=== PATIENT | female | born 1930 | race Caucasian/White ===

== ENCOUNTER 2018-11-13 20:16 | Observation (INO) ==
[2018-11-13 21:23] LABS: Alanine Aminotransferase 34 U/L (12-78); Albumin Level 3.4 gm/dl (3.4-5.0); Aspartate Aminotransferase 32 U/L (15-37); BUN Creatinine Ratio 19.1 (10-20); Blood Urea Nitrogen 17 mg/dl (7-18); Calcium 9.1 mg/dl (8.5-10.1); Carbon Dioxide 27 mmol/L (21-32); Chloride 107 mmol/L (98-107); Est GFR (African American) 67.1; Est GFR (Non-African American) 57.9; Glucose 120 mg/dl (70-99); Potassium 3.6 mmol/L (3.5-5.1); Sodium 139 mmol/L (136-145)
[2018-11-13 21:26] LABS: Albumin Globulin Ratio 0.9 (0.9-2); Alkaline Phosphatase 77 U/L (45-117); Bilirubin,Total 0.9 mg/dl (0.2-1); Globulin 3.8 gm/dl (2.5-4.0); Total Protein 7.2 gm/dl (6.4-8.2)
[2018-11-13 21:33] LABS: Hematocrit (blood only) 44.4 % (37-47); Mean Corpuscular Hgb Conc 33.8 g/dL (32-36); Mean Corpuscular Volume 89.9 fL (80-100); RDW Coefficient of Variation 13.3 % (11.5-14.5); Red Blood Count 4.94 M/uL (4.2-5.4); White Blood Count 9.67 K/uL (4.8-10.8)
[2018-11-13 21:36] LABS: Basophils # (auto) 0.01 K/uL (0-0.2); Basophils % (auto) 0.1 %; Eosinophils # (auto) 0.04 K/uL (0-0.5); Eosinophils % (auto) 0.4 %; Immature Granulocytes # (auto) 0.03 K/uL (0.00-0.02); Immature Granulocytes % (auto) 0.3 %; Lymphocytes # (auto) 0.54 K/uL (1.2-3.4); Lymphocytes % (auto) 5.6 %; Monocytes # (auto) 0.39 K/uL (0.11-0.59); Neutrophils # (auto) 8.66 K/uL (1.4-6.5); Neutrophils % (auto) 89.6 %; Platelet Count 28 K/uL (130-400); Platelet Estimate SIGNIFIC DECREASED (Normal)
[2018-11-13] MEDS ORDERED: ALBUT/IPRATROP 3MG/0.5MG NEB 3 ML VIAL NEB STA ×2 (22:41→23:44)
[2018-11-13] MEDS ORDERED: OSELTAMIVIR PHOSPHATE 75 MG CAP PO STA (22:41)
[2018-11-13] MEDS ORDERED: SODIUM CHLORIDE 0.9% 1000ML 1,000 ML IV SCH (22:45)
[2018-11-13 23:48] LABS: Appearance Urine Clear (Clear); Bacteria Urine Automated Negative (Negative); Bilirubin Urine Negative (Negative); Blood Urine 1+ (Negative); Cast Urine Automated 0 /lpf (0-5); Color Urine Yellow; Glucose Urine UA Negative (Negative); Ketones Urine Negative (Negative); Leukocyte Esterase Urine Negative (Negative); Nitrite Urine Negative (Negative); Protein Urine 1+ (Negative); RBC Urine Automated 0-4 /hpf (0-4); Specific Gravity Urine 1.015 (1.000-1.030); Urobilinogen Urine Negative (Negative)
--- NOTE | 2018-11-14 00:14 | History & Physical Report ---
Date of Service November 14, 2018 Assessment & Plan (1) Influenza A: (2) HTN (hypertension): (3) Thrombocytopenia: (4) History of ITP: History of Present Illness Chief Complaint: Fever and weakness Primary Care Provider: Jennifer Linton 88-year-old female with a past medical history of hypertension, osteoporosis, thrombocytopenia, hypothyroidism, presents to the emergency room tonight complaining of fever, and weakness. In the emergency room she was hypoxic and tested positive for influenza A. She felt too tired and weak to go home so we will place her under observation tonight Assessment and Plan Influenza A Thrombocytopenia Hypertension History of ITP Hypothyroidism Continue Tamiflu, gentle IV fluids, IV steroids, nebulizers, observation status likely to be her less than 2 midnights ROS-No Headache, No Visual Changes, positive fever, positive chills, No Neck Pain or Stiffness, No Chest Pain, No Palpitations, positive SOB, positive DONOHUE, positive cough, No Sputum, No Wheezing, No Abdominal Pain, No Diarrhea, No Hematemesis, No Hemoptysis, No Unexpected Weight Loss, No Flank pain, No Melena, No Hematochezia, No Frequency, No Urgency, No Burning, No Hematuria, No Rashes, No Diaphoresis. Appetite is decreased Physical Exam Gen-AAO x 3, NAD, Afebrile, weak Head-NCAT, EOMI, PERRLA, Anicteric Sclera, No Posterior Pharyngeal Erythema Neck-Supple, No JVD, No Thyromegaly, No Masses, No LAD, No Bruits Lungs-No Rales, No Rhonchi, positive wheezing, No Crepitus Chest-No S4, +S1, +S2, No S3, No Murmurs, No Rubs, No Gallops, No Ectopy Abdomen-Soft, Bowel Sounds Present, Non Tender, Non Distended, No Hepatomegaly, No Splenomegaly, No Palpable Masses, No Rebound, No Rigidity, No Guarding Musculoskeletal-Full Range of Motion Bilaterally, No CVAT Extremities-No Cyanosis, No Clubbing, No Edema Nuero-Cranial Nerves II-XII grossly intact, Motor WNL, DTRs WNL, Strength WNL, No Focal Psych-Normal Mood PMH hypertension, osteoporosis, thrombocytopenia, hypothyroidism, ITP [facility] Meds reviewed and Reconciled Labs Reviewed Allergies Allergy/AdvReac Type Severity Reaction Status Date / Time Penicillins Allergy Severe HIVES Verified 11/13/18 22:36 Sulfa (Sulfonamide Allergy Severe HIVES Verified 11/13/18 22:36 Antibiotics) lisinopril Allergy Mild COUGH Verified 11/13/18 22:36 amlodipine Allergy Unknown Verified 11/14/18 01:47 carvedilol Allergy Unknown Verified 11/14/18 01:47 labetalol Allergy Unknown Verified 11/14/18 01:47 KRILL OIL AdvReac Intermediate GI SYMPTOMS Uncoded 11/13/18 22:36 Home Medications Home Medications Medication Instructions Recorded Confirmed Type acetaminophen [Tylenol Extra 1,000 mg PO DIRECTED PRN 11/13/18 11/13/18 History Strength] alpha lipoic acid 200 mg PO DAILY 11/13/18 11/13/18 History bisoprolol fumarate 10 mg PO QPM 11/13/18 11/13/18 History calcium carbonate-vitamin D3 1 tab PO 3XWK 11/13/18 11/13/18 History [Caltrate 600 + D] cholecalciferol (vitamin D3) 5,000 unit PO DAILY 11/13/18 11/13/18 History [Vitamin D3] clonidine HCl 0.1 mg PO QPM 11/13/18 11/13/18 History dexamethasone 40 mg PO DAILY 11/13/18 11/13/18 History dextromethorphan-guaifenesin 1 dose PO Q12H PRN 11/13/18 11/13/18 History [Mucinex DM] doxycycline hyclate 100 mg PO BID 11/13/18 11/13/18 History latanoprost 1 drp OPB HS 11/13/18 11/13/18 History levothyroxine 68.5 mcg PO WK 11/13/18 11/13/18 History levothyroxine 137 mcg PO 6XWK 11/13/18 11/13/18 History loratadine 10 mg PO DAILY PRN 11/13/18 11/13/18 History losartan 50 mg PO BID 11/13/18 11/13/18 History oseltamivir [Tamiflu] 30 mg PO BID 11/13/18 11/13/18 History spironolactone 25 mg PO DAILY 11/13/18 11/13/18 History vit C,G-Cm-jgnbj-lutein-zeaxan 2 tab PO DAILY 11/13/18 11/13/18 History [PreserVision AREDS-2] Past Med/Surg History Medical History History of ITP Thrombocytopenia HTN (hypertension) (Chronic) Surgical History Hx of cholecystectomy (Resolved) Social History Preferred Language: Sinhala Communication Ability: Effective Counsel[employer] Required: No Beliefs That Will Affect Care: None marital status: Current Living Situation: Alone current occupational status: retired Other Information That Helps Us Care for You: No Feels Safe at Home: Yes Safety Concerns: Feels Safe At This Time Smoking Status: Never smoker Hx Alcohol Use: No Hx Substance Use: No Physical Exam Vital Signs (Past 24 Hours): Last Vital Signs Temp 37.4 C 11/13/18 20:24 Pulse 89 11/13/18 20:24 Resp 18 11/13/18 20:24 BP 127/69 11/13/18 20:24 Pulse Ox 94 11/13/18 20:24
[2018-11-14] MEDS ORDERED: ONDANSETRON INJ 2 MG/ML 2 ML VIAL IV PRN (01:15)
[2018-11-14] MEDS ORDERED: ACETAMINOPHEN 325 MG TAB PO PRN (01:15)
[2018-11-14] MEDS ORDERED: LORATADINE 10 MG TAB PO PRN (01:15)
[2018-11-14] MEDS ORDERED: ACETAMINOPHEN 500 MG TAB PO PRN (01:15)
[2018-11-14] MEDS ORDERED: guaiFENesin 600 MG TABCR PO PRN (01:15)
--- NOTE | 2018-11-14 01:40 | Emergency Department Note ---
Entered by Manju Phan acting as a scribe for History of Present Illness General Chief complaint: Flu Like Symptoms Stated complaint: FLU LIKE SYMPTOMS,LOW PLATELET COUNT Time Seen by Provider: 11/13/18 22:31 Source: patient and family (daughter) Mode of arrival: ambulatory Limitations: no limitations History of Present Illness Provider complaint: Flu like symptoms Onset (ago): hour(s) (today) Location: head Pain Consistency: + other (worsening) Maximum Pain Intensity: 4 Quality: + other (flu like symptoms) Associated symptoms: + weakness and + other (Additional symptoms: low platelet count. Denies: hematuria, hematochezia, melena, vaginal bleeding); no nausea/vomiting Treatments prior to arrival: other (Tamiflu, steroids) The patient is an 88 year old female with a history of hypertension, cholecystec betina, and ITP who presents to the Emergency Room with complaints of worsening flu like symptoms starting today. The patient states that she went to her PCP today at [facility] in [place] and was prescribed Tamiflu and antibiotics. Her daughter notes that the patient subsequently took 1 dose of Tamiflu. The patient also reportedly had a chest x-ray and blood work performed but was not swabbed. Per daughter, the patient's PCP called the patient's jira administrator later this afternoon because the patient's platelets were down to 30. The patient notes that she has had low platelets in the past, which is why she has a jira administrator. The patient also complains of weakness but denies any hematuria, hematochezia, melena, vaginal bleeding, and vomiting. She reports that she is a former smoker and was never diagnosed with COPD and asthma. Home Medications Home Medications Medication Instructions Recorded Confirmed Type acetaminophen [Tylenol Extra 1,000 mg PO DIRECTED PRN 11/13/18 11/13/18 History Strength] alpha lipoic acid 200 mg PO DAILY 11/13/18 11/13/18 History bisoprolol fumarate 10 mg PO QPM 11/13/18 11/13/18 History calcium carbonate-vitamin D3 1 tab PO 3XWK 11/13/18 11/13/18 History [Caltrate 600 + D] cholecalciferol (vitamin D3) 5,000 unit PO DAILY 11/13/18 11/13/18 History [Vitamin D3] clonidine HCl 0.1 mg PO QPM 11/13/18 11/13/18 History dexamethasone 40 mg PO DAILY 11/13/18 11/13/18 History dextromethorphan-guaifenesin 1 dose PO Q12H PRN 11/13/18 11/13/18 History [Mucinex DM] doxycycline hyclate 100 mg PO BID 11/13/18 11/13/18 History latanoprost 1 drp OPB HS 11/13/18 11/13/18 History levothyroxine 68.5 mcg PO WK 11/13/18 11/13/18 History levothyroxine 137 mcg PO 6XWK 11/13/18 11/13/18 History loratadine 10 mg PO DAILY PRN 11/13/18 11/13/18 History losartan 50 mg PO BID 11/13/18 11/13/18 History oseltamivir [Tamiflu] 30 mg PO BID 11/13/18 11/13/18 History spironolactone 25 mg PO DAILY 11/13/18 11/13/18 History vit C,G-Gg-pkhcf-lutein-zeaxan 2 tab PO DAILY 11/13/18 11/13/18 History [PreserVision AREDS-2] Allergies Allergy/AdvReac Type Severity Reaction Status Date / Time Penicillins Allergy Severe HIVES Verified 11/13/18 22:36 Sulfa (Sulfonamide Allergy Severe HIVES Verified 11/13/18 22:36 Antibiotics) lisinopril Allergy Mild COUGH Verified 11/13/18 22:36 KRILL OIL AdvReac Intermediate GI SYMPTOMS Uncoded 11/13/18 22:36 Past Med/Surg History Medical History History of ITP Thrombocytopenia HTN (hypertension) (Chronic) Surgical History Hx of cholecystectomy (Resolved) Social History Preferred Language: Australian marital status: current occupational status: retired Feels Safe at Home: Yes Smoking Status: Former smoker Review of Systems See HPI for pertinent positives & negatives. and A total of 10 systems reviewed and were otherwise negative Physical Exam Vital Signs Vital Signs - 24 hr 11/13/18 20:24 11/13/18 23:52 11/14/18 00:00 Temperature 37.4 C Temperature Source Oral Sepsis Recent Fever Within 48 Hours Yes Sepsis Action Taken by Nursing No Action Required Pulse Rate 89 89 97 H Pulse Rate from SpO2 Sensor 87 96 H Respiratory Rate 18 12 13 Blood Pressure 127/69 119/82 116/70 Blood Pressure Mean 88 94 85 Pulse Oximetry 94 98 96 Oxygen Delivery Method Room Air 11/14/18 00:30 11/14/18 00:46 Temperature 36.6 C Temperature Source Sepsis Recent Fever Within 48 Hours Sepsis Action Taken by Nursing Pulse Rate 116 H Pulse Rate from SpO2 Sensor 116 H Respiratory Rate 28 H Blood Pressure 132/68 Blood Pressure Mean 89 Pulse Oximetry 91 Oxygen Delivery Method GENERAL: She is oriented to person, place, and time. She appears well-developed and well-nourished. She does not appear distressed. HENT: Exam performed. Head: Normocephalic and atraumatic. Right Ear: External ear normal. No mastoid tenderness. Left Ear: External ear normal. No mastoid tenderness. Mouth/Throat: The oropharynx is clear and moist. No trismus in the jaw. No dental abscesses or uvula swelling. No oropharyngeal exudate or tonsillar abscesses. No petechiae or oral lesions. EYES: Conjunctivae and EOM are normal. Pupils are equal, round, and reactive to light. Right eye exhibits no discharge. Left eye exhibits no discharge. No scleral icterus. NECK: Normal range of motion. Neck supple. No JVD present. No spinous process tenderness present. No carotid bruit present. No rigidity. No tracheal deviation and normal range of motion present. No Brudzinski's sign and no Kernig's sign noted. CV: Tachycardic rate, regular rhythm, normal heart sounds and intact distal pulses. There is no peripheral edema. Palpable radial pulses bue. PULM/CHEST: Effort normal. No respiratory distress. No stridor. She has expiratory wheezes bilaterally. She has no rales. Chest Wall: She exhibits no tenderness. ABD: The abdomen is soft. Bowel sounds are normal. She has no distension. No mass is present. There is no tenderness. There is no rebound, no guarding, no Adamson's sign and no tenderness at McBurney's point. Rovsig negative MUSC/SKEL: Normal range of motion. There is no peripheral edema, tenderness or deformity. LYMPH: No cervical adenopathy. NEURO: She is alert and oriented to person, place, and time. She has normal strength. No cranial nerve deficit or sensory deficit. Coordination and gait normal. GCS eye subscore is 4. GCS verbal subscore is 5. GCS motor subscore is 6. cerbellar tests wnl. SKIN: Skin is warm and dry. She is not diaphoretic. PSYCH: She has a normal mood and affect. Her behavior is normal. Judgment and thought content normal. Course 2234: Past medical records reviewed. The patient was evaluated in room D5, and a complete history and physical examination were performed. Records from obtained by the debug technician through the [employer] portal reveal that the patient has a history of thrombocytopenia. Her platelets usually run from 40,000-90,000 and the patient is through to have ITP. The patient was seen in the office today and had a platelet count of 30. 2337: Signs stable. Patient's lab platelet count is 20,000. Chest x-ray within normal limits. Influenza positive. It is thought that the patient's influenza virus is causing her thrombocytopenia anterior her have an acute flareup of ITP. I reviewed the patient's case with Dr. Centeno - Hematology/Oncology, [facility]. Dr. Wood stated that no steroids are indicated to treat the ITP at this point. 2344: Upon reevaluation, the patient is still wheezing. She will be given repeat DuoNeb. I had a long discussion with the patient daughter at bedside. They state that they do not feel comfortable taking the patient home as her platelet count is going lower and she is extremely fatigued and having difficulty breathing. I discussed the findings and the treatment plan with the patient. She expresses agreement and understanding. I spoke with Dr. Dykes of the [facility]. The patient will be evaluated for further management. Consultations Consultation #1: I reviewed the patient's case with Dr. Centeno - Hematology/Oncology, [facility]. Dr. Wood stated that no steroids are indicated. Time: 23:37 Consultation #2: I discussed the findings and the treatment plan with the patient. She expresses agreement and understanding. I spoke with Dr. Dykes of the [facility]. The patient will be evaluated for further management. Time: 23:44 Administered Medications Sodium Chloride (Nss 1000ml) 1,000 mls @ 125 mls/hr IV .Q8H DASHA Stop: 12/13/18 22:44 Last Admin: 11/13/18 23:50 Dose: 125 mls/hr Documented by: [id number] Discontinued Medications Albuterol (Duoneb) 3 ml NEB NOW STA Stop: 11/13/18 22:42 Last Admin: 11/13/18 23:43 Dose: 3 ml Documented by: [id number] Albuterol (Duoneb) 3 ml NEB NOW STA Stop: 11/13/18 23:45 Last Admin: 11/13/18 23:54 Dose: 3 ml Documented by: [id number] Oseltamivir Phosphate (Tamiflu) 75 mg PO NOW STA Stop: 11/13/18 22:42 Last Admin: 11/13/18 23:42 Dose: 75 mg Documented by: [id number] Medical Decision Making Medical Records Attestation: I reviewed the patient's medical records. Home Medications Current Medication List: was personally reviewed by me Laboratory Data Attestation: I reviewed the patient's lab results. Result diagrams: 11/13/18 20:36 11/13/18 20:36 Lab Results 11/13/18 11/13/18 11/13/18 Range/Units 20:29 20:36 20:36 WBC 9.67 (4.8-10.8) K/uL RBC 4.94 (4.2-5.4) M/uL Hgb 15.0 (12.0-16.0) g/dL Hct 44.4 (37-47) % MCV 89.9 (80-100) fL MCH 30.4 (25-34) pg MCHC 33.8 (32-36) g/dL RDW Std Deviation 44.0 (36.4-46.3) fL RDW Coeff of Kristopher 13.3 (11.5-14.5) % Plt Count 28 L* (130-400) K/uL Immature Gran % (Auto) 0.3 % Neut % (Auto) 89.6 % Lymph % (Auto) 5.6 % Clarke % (Auto) 4.0 % Eos % (Auto) 0.4 % Baso % (Auto) 0.1 % Immature Gran # (Auto) 0.03 H (0.00-0.02) K/uL Neut # (Auto) 8.66 H (1.4-6.5) K/uL Lymph # (Auto) 0.54 L (1.2-3.4) K/uL Clarke # (Auto) 0.39 (0.11-0.59) K/uL Eos # (Auto) 0.04 (0-0.5) K/uL Baso # (Auto) 0.01 (0-0.2) K/uL Platelet Estimate SIGNIFIC DECREASED (Normal) Sodium 139 (136-145) mmol/L Potassium 3.6 (3.5-5.1) mmol/L Chloride 107 (98-107) mmol/L Carbon Dioxide 27 (21-32) mmol/L Anion Gap 6.0 (3-11) BUN 17 (7-18) mg/dl Creatinine 0.89 (0.6-1.2) mg/dl Est Cr Clr Drug Dosing Not Reportable Est GFR ( Amer) 67.1 Est GFR (Non-Af Amer) 57.9 BUN/Creatinine Ratio 19.1 (10-20) Glucose 120 H (70-99) mg/dl Calcium 9.1 (8.5-10.1) mg/dl Total Bilirubin 0.9 (0.2-1) mg/dl AST 32 (15-37) U/L ALT 34 (12-78) U/L Alkaline Phosphatase 77 (45-117) U/L Total Protein 7.2 (6.4-8.2) gm/dl Albumin 3.4 (3.4-5.0) gm/dl Globulin 3.8 (2.5-4.0) gm/dl Albumin/Globulin Ratio 0.9 (0.9-2) Urine Color Urine Appearance (Clear) Urine pH (4.5-7.5) Ur Specific [place] (1.000-1.030) Urine Protein (Negative) Urine Glucose (UA) (Negative) Urine Ketones (Negative) Urine Blood (Negative) Urine Nitrite (Negative) Urine Bilirubin (Negative) Urine Urobilinogen (Negative) Ur Leukocyte Esterase (Negative) Urine WBC (Auto) (0-5) /hpf Urine RBC (Auto) (0-4) /hpf U Hyaline Cast (Auto) (0-5) /lpf U Epithel Cells (Auto) (0-5) /lpf Urine Bacteria (Auto) (Negative) Influenza Type A Ag Pos for Influ A A* (Neg) Influenza Type B Ag Neg for Influ B (Neg) 11/13/18 Range/Units 23:30 WBC (4.8-10.8) K/uL RBC (4.2-5.4) M/uL Hgb (12.0-16.0) g/dL Hct (37-47) % MCV (80-100) fL MCH (25-34) pg MCHC (32-36) g/dL RDW Std Deviation (36.4-46.3) fL RDW Coeff of Kristopher (11.5-14.5) % Plt Count (130-400) K/uL Immature Gran % (Auto) % Neut % (Auto) % Lymph % (Auto) % Clarke % (Auto) % Eos % (Auto) % Baso % (Auto) % Immature Gran # (Auto) (0.00-0.02) K/uL Neut # (Auto) (1.4-6.5) K/uL Lymph # (Auto) (1.2-3.4) K/uL Clarke # (Auto) (0.11-0.59) K/uL Eos # (Auto) (0-0.5) K/uL Baso # (Auto) (0-0.2) K/uL Platelet Estimate (Normal) Sodium (136-145) mmol/L Potassium (3.5-5.1) mmol/L Chloride (98-107) mmol/L Carbon Dioxide (21-32) mmol/L Anion Gap (3-11) BUN (7-18) mg/dl Creatinine (0.6-1.2) mg/dl Est Cr Clr Drug Dosing Est GFR ( Amer) Est GFR (Non-Af Amer) BUN/Creatinine Ratio (10-20) Glucose (70-99) mg/dl Calcium (8.5-10.1) mg/dl Total Bilirubin (0.2-1) mg/dl AST (15-37) U/L ALT (12-78) U/L Alkaline Phosphatase (45-117) U/L Total Protein (6.4-8.2) gm/dl Albumin (3.4-5.0) gm/dl Globulin (2.5-4.0) gm/dl Albumin/Globulin Ratio (0.9-2) Urine Color Yellow Urine Appearance Clear (Clear) Urine pH 6.0 (4.5-7.5) Ur Specific [place] 1.015 (1.000-1.030) Urine Protein 1+ H (Negative) Urine Glucose (UA) Negative (Negative) Urine Ketones Negative (Negative) Urine Blood 1+ H (Negative) Urine Nitrite Negative (Negative) Urine Bilirubin Negative (Negative) Urine Urobilinogen Negative (Negative) Ur Leukocyte Esterase Negative (Negative) Urine WBC (Auto) 1-5 (0-5) /hpf Urine RBC (Auto) 0-4 (0-4) /hpf U Hyaline Cast (Auto) 0 (0-5) /lpf U Epithel Cells (Auto) 10-20 H (0-5) /lpf Urine Bacteria (Auto) Negative (Negative) Influenza Type A Ag (Neg) Influenza Type B Ag (Neg) Imaging Data Attestation: I personally reviewed and interpreted this imaging study as follows: My Impression: XR CHEST 2V Findings: Airways are clear. No infiltrate. No cardiomegaly. No cephalization. No bony fractures. No free air under diaphragm. This x-ray was interpreted by me. ECG Data Attestation: I personally reviewed and interpreted this ECG as follows: Indication: other (flu like symptoms) Rate (beats per minute): 98 Rhythm: normal sinus Findings: + other (MT, QRS, and QTC intervals within normal limits); no ST depression and no ST elevation Blood Pressure Blood Pressure Findings: Normal blood pressure MDM Narrative 2234: Past medical records reviewed. The patient was evaluated in room D5, and a complete history and physical examination were performed. Records from obtained by the debug technician through the [employer] portal reveal that the patient has a history of thrombocytopenia. Her platelets usually run from 40,000-90,000 and the patient is through to have ITP. The patient was seen in the office today and had a platelet count of 30. 2337: Signs stable. Patient's lab platelet count is 20,000. Chest x-ray within normal limits. Influenza positive. It is thought that the patient's influenza virus is causing her thrombocytopenia anterior her have an acute flareup of ITP. I reviewed the patient's case with Dr. Centeno - Hematology/Oncology, [facility]. Dr. Wood stated that no steroids are indicated to treat the ITP at this point. 2344: Upon reevaluation, the patient is still wheezing. She will be given repeat DuoNeb. I had a long discussion with the patient daughter at bedside. They state that they do not feel comfortable taking the patient home as her platelet count is going lower and she is extremely fatigued and having difficulty breathing. I discussed the findings and the treatment plan with the patient. She expresses agreement and understanding. I spoke with Dr. Dykes of the [facility]. The patient will be evaluated for further management. Impression & Plan Influenza, Idiopathic thrombocytopenic purpura (ITP) Discharge Plan Visit Data Chief Complaint: Flu Like Symptoms Stated Complaint: FLU LIKE SYMPTOMS,LOW PLATELET COUNT ED Provider: Ariel Farrell Discharge Problem: Influenza, Idiopathic thrombocytopenic purpura (ITP) Patient Disposition: Admitted As Inpatient The gilmaibe's documentation has been prepared under my direction and personally reviewed by me in its entirety. I confirm that the note above accurately reflects all work, treatment, procedures, and medical decision making performed by me.
[2018-11-14] MEDS: methylPREDNISolone 40 MG in SYRINGE 0 ML IV SCH ×4 (03:04→20:55)
[2018-11-14] MEDS: LEVOTHYROXINE SODIUM 137 MCG TABLET PO SCH (06:09)
[2018-11-14 06:17] LABS: BUN Creatinine Ratio 20.4 (10-20); Calcium 8.8 mg/dl (8.5-10.1); Creatinine Clr Calc Pharmacy 53.5 ml/min; Est GFR (African American) 81.2; Potassium 3.5 mmol/L (3.5-5.1)
[2018-11-14 06:25] LABS: Hematocrit (blood only) 43.2 % (37-47); Hemoglobin 14.3 g/dL (12.0-16.0); Mean Corpuscular Hgb Conc 33.1 g/dL (32-36); Mean Corpuscular Volume 88.9 fL (80-100); Mean Platelet Volume 13.8 fL (7.4-10.4); Platelet Count 34 K/uL (130-400); RDW Coefficient of Variation 13.2 % (11.5-14.5); RDW Standard Deviation 43.1 fL (36.4-46.3); Red Blood Count 4.86 M/uL (4.2-5.4)
[2018-11-14 06:26] LABS: Platelet Estimate SIGNIFIC DECREASED (Normal)
--- NOTE | 2018-11-14 06:39 | XRay Report ---
XR chest 2V routine CLINICAL HISTORY: Productive cough. Evaluate for pneumonia. COMPARISON STUDY: Chest radiograph and chest CT August 16, 2016. FINDINGS: No pneumothorax or pleural effusion is noted. There is no consolidation. There is no eviden ce for pulmonary edema. Mild lingular opacity favors atelectasis. There is no evidence for pulmonary edema. There is mild cardiomegaly. IMPRESSION: No acute cardiopulmonary findings. Electronically signed by: Tip Alcala M.D. 11/14/2018 6:37 AM
[2018-11-14] MEDS ORDERED: DEXTROMETHORPHAN POLYMR COMPLX 30 MG/5 ML UDP PO PRN (08:17)
[2018-11-14] MEDS: SODIUM CHLORIDE 0.9% 1000ML 1,000 ML IV SCH ×2 (08:37→21:38)
[2018-11-14] MEDS: CHOLECALCIFEROL 1,000 UNITS TAB PO SCH (08:38)
[2018-11-14] MEDS: LOSARTAN POTASSIUM 50 MG TAB PO SCH ×2 (08:38→20:50)
[2018-11-14] MEDS: CEROVITE ADV FORMULA TAB PO SCH (08:38)
[2018-11-14] MEDS: SPIRONOLACTONE 25 MG TAB PO SCH (08:39)
[2018-11-14] MEDS: OSELTAMIVIR PHOSPHATE SUSP 30 MG/5 ML UDP PO SCH ×2 (08:45→20:51)
[2018-11-14] MEDS ORDERED: NON-FORMULARY MEDICATION (Alpha Lipoic Acid 200 MG) PO SCH (09:00)
--- NOTE | 2018-11-14 18:50 | Hospitalist Progress Note ---
Date of Service November 14, 2018 Assessment & Plan (1) Influenza A: CXR:No acute cardiopulmonary findings. 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 No bleeding issues Platelets improving On steroids (4) History of ITP: Management as above Hypothyroidism: Continue Levothyroxine DVT Px: SCDs Re: Low platelets Subjective Patient is seen and examined at bedside Doing much better today less cough Denies chest pain, SOB, dizziness, nausea Offers no other complaints Physical Exam Vital Signs (Past 24 Hours): Last Vital Signs Temp 37.3 C 11/14/18 15:01 Pulse 99 H 11/14/18 15:01 Resp 20 11/14/18 15:01 BP 115/69 11/14/18 15:01 Pulse Ox 92 11/14/18 15:01 Physical Exam: Physical Exam: Vitals signs as noted above General Appearance:Moderately built and nourished, no apparent distress Head: normocephalic, Atraumatic Eyes: normal inspection, EOMI Neck: supple, Trachea midline Respiratory/Chest: Normal breath sounds, CTA Cardiovascular: S1, S2, No murmur Abdomen/GI:Soft, Non tender, Bowel sounds present Extremities/Musculoskelatal:normal inspection, no edema Neurologic/Psych:AAOX3, grossly no focal neurological deficits Skin: normal color, warm Results & Data Laboratory Results Short CBC 11/13/18 11/14/18 Range/Units 20:36 05:44 WBC 9.67 7.40 (4.8-10.8) K/uL Hgb 15.0 14.3 (12.0-16.0) g/dL Hct 44.4 43.2 (37-47) % Plt Count 28 L* 34 L (130-400) K/uL BMP 11/13/18 11/14/18 20:36 05:44 Sodium 139 144 Potassium 3.6 3.5 Chloride 107 111 H Carbon Dioxide 27 28 BUN 17 15 Creatinine 0.89 0.76 Glucose 120 H 139 H Calcium 9.1 8.8 Liver Function 11/13/18 Range/Units 20:36 Total Bilirubin 0.9 (0.2-1) mg/dl AST 32 (15-37) U/L ALT 34 (12-78) U/L Alkaline Phosphatase 77 (45-117) U/L Albumin 3.4 (3.4-5.0) gm/dl Urine 11/13/18 Range/Units 23:30 Urine Color Yellow Urine Appearance Clear (Clear) Urine pH 6.0 (4.5-7.5) Ur Specific [place] 1.015 (1.000-1.030) Urine Protein 1+ H (Negative) Urine Glucose (UA) Negative (Negative)
[2018-11-14] MEDS ORDERED: cloNIDine HCl 0.1 MG TAB PO SCH (21:00)
[2018-11-14] MEDS ORDERED: LATANOPROST 0.005% OP SOLN 2.5 ML BTL OPB SCH (21:00)
[2018-11-15] MEDS: methylPREDNISolone 40 MG in SYRINGE 0 ML IV SCH ×2 (03:24→08:00)
[2018-11-15] MEDS: LEVOTHYROXINE SODIUM 137 MCG TABLET PO SCH (06:33)
[2018-11-15 07:36] LABS: Hemoglobin 14.2 g/dL (12.0-16.0); Mean Corpuscular Volume 89.2 fL (80-100); Mean Platelet Volume 13.9 fL (7.4-10.4); Platelet Count 62 K/uL (130-400); RDW Coefficient of Variation 13.4 % (11.5-14.5); Red Blood Count 4.82 M/uL (4.2-5.4); White Blood Count 14.54 K/uL (4.8-10.8)
[2018-11-15 07:49] LABS: BUN Creatinine Ratio 23.4 (10-20); Calcium 8.9 mg/dl (8.5-10.1); Creatinine Clr Calc Pharmacy 50.8 ml/min; Est GFR (African American) 76.3; Est GFR (Non-African American) 65.8; Potassium 3.7 mmol/L (3.5-5.1)
[2018-11-15] MEDS: CHOLECALCIFEROL 1,000 UNITS TAB PO SCH (07:55)
[2018-11-15] MEDS: OSELTAMIVIR PHOSPHATE SUSP 30 MG/5 ML UDP PO SCH (07:55)
[2018-11-15] MEDS: LOSARTAN POTASSIUM 50 MG TAB PO SCH (07:56)
[2018-11-15] MEDS: CEROVITE ADV FORMULA TAB PO SCH (07:56)
[2018-11-15] MEDS: SPIRONOLACTONE 25 MG TAB PO SCH (07:56)
--- NOTE | 2018-11-15 13:52 | Hospitalist Progress Note ---
Date of Service November 15, 2018 Assessment & Plan (1) Influenza A: CXR:No acute cardiopulmonary findings. 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 Hypothyroidism: Continue Levothyroxine DVT Px: SCDs Re: Low platelets Subjective Patient is seen and examined at bedside Feels much better today No new complaints cough continues to improve Denies chest pain, SOB, dizziness, nausea Physical Exam Vital Signs (Past 24 Hours): Last Vital Signs Temp 37.2 C 11/15/18 08:06 Pulse 93 H 11/15/18 08:06 Resp 18 11/15/18 08:06 BP 137/74 11/15/18 08:06 Pulse Ox 94 11/15/18 08:06 Physical Exam: Physical Exam: Vitals signs as noted above General Appearance:Moderately built and nourished, no apparent distress Head: normocephalic, Atraumatic Eyes: normal inspection, EOMI Neck: supple, Trachea midline Respiratory/Chest: Normal breath sounds, CTA Cardiovascular: S1, S2, No murmur Abdomen/GI:Soft, Non tender, Bowel sounds present Extremities/Musculoskelatal:normal inspection, no edema Neurologic/Psych:AAOX3, grossly no focal neurological deficits Skin: normal color, warm Results & Data Laboratory Results Short CBC 11/15/18 Range/Units 06:50 WBC 14.54 H (4.8-10.8) K/uL Hgb 14.2 (12.0-16.0) g/dL Hct 43.0 (37-47) % Plt Count 62 L D (130-400) K/uL BMP 11/15/18 06:50 Sodium 145 Potassium 3.7 Chloride 114 H Carbon Dioxide 26 BUN 19 H Creatinine 0.80 Glucose 127 H Calcium 8.9
--- NOTE | 2018-11-15 14:02 | Discharge Summary ---
Date of Service November 15, 2018 Admission HPI Per Admitting Provider 88-year-old female with a past medical history of hypertension, osteoporosis, thrombocytopenia, hypothyroidism, presents to the emergency room tonight complaining of fever, and weakness. In the emergency room she was hypoxic and tested positive for influenza A. She felt too tired and weak to go home so we will place her under observation tonight Admission Exam Per Admitting Provider Physical Exam Gen-AAO x 3, NAD, Afebrile, weak Head-NCAT, EOMI, PERRLA, Anicteric Sclera, No Posterior Pharyngeal Erythema Neck-Supple, No JVD, No Thyromegaly, No Masses, No LAD, No Bruits Lungs-No Rales, No Rhonchi, positive wheezing, No Crepitus Chest-No S4, +S1, +S2, No S3, No Murmurs, No Rubs, No Gallops, No Ectopy Abdomen-Soft, Bowel Sounds Present, Non Tender, Non Distended, No Hepatomegaly, No Splenomegaly, No Palpable Masses, No Rebound, No Rigidity, No Guarding Musculoskeletal-Full Range of Motion Bilaterally, No CVAT Extremities-No Cyanosis, No Clubbing, No Edema Nuero-Cranial Nerves II-XII grossly intact, Motor WNL, DTRs WNL, Strength WNL, No Focal Psych-Normal Mood Principal Diagnosis Discharge Information Discharge Diagnosis Influenza A Thrombocytopenia ITP Discharge Goals Decrease discomfort,Improve disease control, Improve function Discharge Activity Limitations Resume your previous activity Discharge Data Allergies Allergy/AdvReac Type Severity Reaction Status Date / Time Penicillins Allergy Severe HIVES Verified 11/13/18 22:36 Sulfa (Sulfonamide Allergy Severe HIVES Verified 11/13/18 22:36 Antibiotics) lisinopril Allergy Mild COUGH Verified 11/13/18 22:36 amlodipine Allergy Unknown Verified 11/14/18 01:47 carvedilol Allergy Unknown Verified 11/14/18 01:47 labetalol Allergy Unknown Verified 11/14/18 01:47 KRILL OIL AdvReac Intermediate GI SYMPTOMS Uncoded 11/13/18 22:36 Consultations 11/13/18 23:44 ED Decision to Admit Stat Procedures Performed CXR: No acute cardiopulmonary findings. Hospital Course (1) Influenza A: CXR:No acute cardiopulmonary findings. 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 Hypothyroidism: Continue Levothyroxine DVT Px: SCDs Re: Low platelets Total Time Total Time Spent Total Time Spent (In Minutes): 25 minutes Total Time Includes: Examination of the Patient, Discharge Planning, Medication Reconciliation and Other Discharge Plan Discharge Items Patient Disposition: Home - Self-Care Reason For Visit: FLU, WEAK, LOW PLATELETS Discharge Diagnosis: Influenza A Thrombocytopenia ITP Discharge Goals: Decrease discomfort, Improve disease control and Improve function Activity: Resume your previous activity Exercise/Sports: Gradually increase as tolerated Non-emergency contact: Primary Care Provider and Oncologist Call non-emergency contact if: you have any medication questions, your symptoms worsen, your pain is not controlled, your pain is worsening, your pain is unusual for you, your pain is concerning for you and you have a fever Follow-up/Referrals: Jennifer Linton PA-C [Primary Care Provider] - Diet: Heart Healthy Addtl Provider Instructions: Follow up with your PCP Dr.Katherine Linton in 1 week Follow up with your Senior Instrumentation Engineer/Oncologist as advised Complete the Tamiflu course as prescribed--for 3 more days only Seek immediate medical attention if your symptoms reoccur or worsen Prescriptions: Continued losartan 50 mg Tablet 50 mg PO BID RF: 0 latanoprost 0.005 % Drops 1 drp OPB HS RF: 0 levothyroxine 137 mcg Tablet 137 mcg PO 6XWK RF: 0 levothyroxine 137 mcg Tablet 68.5 mcg PO WK RF: 0 clonidine HCl 0.1 mg Tablet 0.1 mg PO QPM RF: 0 acetaminophen [Tylenol Extra Strength] 500 mg Tablet 1,000 mg PO DIRECTED PRN (Reason: Pain) RF: 0 spironolactone 25 mg Tablet 25 mg PO DAILY RF: 0 bisoprolol fumarate 10 mg Tablet 10 mg PO QPM RF: 0 dexamethasone 4 mg Tablet 40 mg PO DAILY RF: 0 Mucinex DM 30-600 mg Tablet Extended Release 12 Hr 1 dose PO Q12H PRN (Reason: Cold Symptoms) RF: 0 doxycycline hyclate 100 mg Tablet 100 mg PO BID RF: 0 loratadine 10 mg Tablet 10 mg PO DAILY PRN (Reason: Congestion) RF: 0 cholecalciferol (vitamin D3) [Vitamin D3] 5,000 unit Tablet 5,000 unit PO DAILY RF: 0 alpha lipoic acid 200 mg Tablet 200 mg PO DAILY RF: 0 PreserVision AREDS-2 [id number] [id number]-mg Capsule 2 tab PO DAILY RF: 0 Caltrate 600 + D 600 mg (1,500 mg)-800 unit Tablet,Chewable 1 tab PO 3XWK RF: 0 oseltamivir [Tamiflu] 30 mg Capsule 30 mg PO BID 3 Days Qty: 6 RF: 0 Stand-Alone Forms: [facility] Discharge Orders: Discharge Order (Routine); Ordered 11/15/18 Ordered By: Demetrio Mahajan Admission Data Admit Date/Time: 11/14/18 00:05 Attending Provider: Demetrio Mahajan Admit Provider: Dominick Dykes Primary Care Provider: Jennifer Linton Other Providers: Dominick Dykes Service: Medical Other Interventions: Discharge Summary Assessment (RN) Last Done: 11/15/18 14:08 Pending Studies at Discharge: No DC Date/Time DO NOT enter until pt leaves facility: 11/15/18 16:18
[2018-11-16] MEDS ORDERED: CALCIUM 600MG + VIT D 400 IU TAB PO SCH (09:00)
[2018-11-20] MEDS ORDERED: LEVOTHYROXINE SODIUM 137 MCG TABLET PO SCH (06:30)
== END 2018-11-15 16:18 | disposition home or self-care (01) ==
LOC: 4W 20:16 → ED 20:16 → 4W 11-14 01:01